=== PATIENT | female | born 1945 | race Hispanic/Latino ===

== ENCOUNTER 2018-02-22 14:45 | Outpatient (CLI) | payer MEDICARE ==
--- NOTE | 2018-02-23 16:46 | MMO ---
BILATERAL SCREENING MAMMOGRAM: 02/22/18 HISTORY: 72-year-old female for screening mammography. COMPARISON: 06/16/16, 06/19/14. FINDINGS: Bilateral MLO and CC views of the breasts shows scattered fibroglandular breast tissue. Benign appear ing calcifications are seen in both breasts. There is no evidence of suspicious mass, suspicious clus ter of microcalcifications or area of architectural distortion. Interpretation of this mammogram was performed with the assistance of computer aided detection. IMPRESSION: BI-RADS 2: Benign Finding(s) Routine annual screening mammography (for women over age 40). POS: [facility]
== END 2018-02-22 14:46 | disposition home or self-care (01) ==
LOC: SCSMAMMO 14:45
PROVIDERS: ATTEND Family Medicine
DX: Z12.31 Encounter for screening mammogram for malignant neoplasm of breast (principal)
CPT/HCPCS: 77067

== ENCOUNTER 2024-02-01 11:02 | Observation (INO) | payer MEDICARE ==
[2024-02-01 12:02] LABS: #Basophils 0.09 10x3/uL (0.0-0.2); %Basophils 1.6 % (0.0-1.0); %Eosinophils 1.1 % (0.0-10.0); %Lymphocytes 13.1 % (21.0-51.0); %Monocytes 8.1 % (0.0-10.0); %Neutrophils 75.7 % (42.0-75.0); Hematocrit 32.3 % (36.0-47.0); Hemoglobin 10.8 g/dL (12.0-16.0); Mean Corpuscular HGB CONC 33.4 g/dL (32.0-36.0); Mean Corpuscular Volume 77.6 fL (78.0-98.0); Mean Platelet Volume 10.6 fL (7.4-10.4); Platelet Count 182 10x3/uL (130-400); RBC Distribution Width 15.5 % (11.5-14.5); Red Blood Cell (RBC) Count 4.16 mill/uL (4.20-5.40)
[2024-02-01 12:25] LABS: ALT (SGPT) 8 U/L (8-55); AST (SGOT) 23 U/L (5-34); Albumin 3.8 g/dL (3.4-4.8); Alkaline Phosphatase 62 U/L (40-110); Anion Gap 16 mmol/L (10-20); BUN (Urea Nitrogen) 17 mg/dL (9.8-20.1); Bilirubin, Total 0.6 mg/dL (0.2-1.2); Calc. Creatinine Clearance 0 mL/min (70-130); Calcium 9.1 mg/dL (7.8-10.44); Carbon Dioxide 17 mmol/L (23-31); Chloride 97 mmol/L (98-107); Estimated GFR 53; Glucose 134 mg/dL (83-110); Magnesium 1.4 mg/dL (1.6-2.6); Protein, Total 6.8 g/dL (5.8-8.1); Sodium 126 mmol/L (136-145)
[2024-02-01 12:53] LABS: Troponin I 0.014 ng/mL (< 0.028)
[2024-02-01 12:58] LABS: Bacteria/HPF 4+ HPF (None Seen); Bilirubin Negative (Negative); Blood, Urine Negative (Negative); CAUTI Indications for Culture Dysuria,urgency,freq; Clarity Turbid (Clear); Glucose, Urine (Dipstick) Normal (Negative); Ketone, Urine Trace mg/dL (Negative); Leukocyte 500 Leu/uL (Negative); Nitrite Negative (Negative); Protein, Urine (Dipstick) Negative (Neg-Trace); RBC/HPF None Seen HPF (0-3); Squamous Epithelial None Seen HPF (0-3); Urobilinogen Normal mg/dL (Less than 2); WBC/HPF Greater than 50 HPF (0-3)
[2024-02-01 13:01] LABS: Urine Culture Reflex Yes Yes
[2024-02-01] MEDS ORDERED: Senokot S 8.6-50 MG TAB PO PRN (14:33)
[2024-02-01] MEDS ORDERED: Glucagon 1 MG/ML KIT IM PRN (14:33)
[2024-02-01] MEDS ORDERED: Dextrose 50% Abboject 50 ML SYRINGE SLOW IVP PRN (14:33)
[2024-02-01] MEDS ORDERED: Acetaminophen 325 MG TAB PO PRN (14:33)
[2024-02-01] MEDS ORDERED: Dextrose 5% in Water 1,000 ML IV PRN (14:33)
[2024-02-01] MEDS ORDERED: Insulin Regular, Human 100 UNIT/ML 10 ML VIAL SC PRN (14:33)
[2024-02-01 15:19] LABS: Lactic Acid 2.2 mmol/L (0.5-2.2)
[2024-02-01] MEDS ORDERED: Sodium Chloride 0.9% 100 ML ONE (16:00)
[2024-02-01] MEDS ORDERED: cefTRIAXone (ROCEPHIN) 2 GM VIAL ONE (16:01)
[2024-02-01 18:32] VITALS: BMI 28.1
[2024-02-01] MEDS: Magnesium 2 GM/50 ML(in water) 2 GM in Premix 1 BAG IVPB SCH ×2 (19:24→20:49)
[2024-02-01] MEDS: Famotidine 20 MG TAB PO SCH (20:49)
[2024-02-02 05:43] LABS: #Basophils 0.09 10x3/uL (0.0-0.2); %Basophils 1.8 % (0.0-1.0); %Eosinophils 2.9 % (0.0-10.0); %Lymphocytes 19.1 % (21.0-51.0); %Monocytes 11.1 % (0.0-10.0); %Neutrophils 64.7 % (42.0-75.0); Hematocrit 33.4 % (36.0-47.0); Hemoglobin 10.9 g/dL (12.0-16.0); Mean Corpuscular HGB CONC 32.6 g/dL (32.0-36.0); Mean Corpuscular Hemoglobin 25.5 pg (27.0-31.0); Mean Corpuscular Volume 78.2 fL (78.0-98.0); Mean Platelet Volume 10.4 fL (7.4-10.4); Platelet Count 190 10x3/uL (130-400); RBC Distribution Width 15.6 % (11.5-14.5); Red Blood Cell (RBC) Count 4.27 mill/uL (4.20-5.40)
[2024-02-02 05:47] LABS: Anion Gap 16 mmol/L (10-20); BUN (Urea Nitrogen) 17 mg/dL (9.8-20.1); Calc. Creatinine Clearance 53 mL/min (70-130); Calcium 8.7 mg/dL (7.8-10.44); Carbon Dioxide 19 mmol/L (23-31); Chloride 103 mmol/L (98-107); Estimated GFR 67; Glucose 88 mg/dL (83-110); Potassium 4.4 mmol/L (3.5-5.1); Sodium 134 mmol/L (136-145)
[2024-02-02] MEDS ORDERED: Non-Formulary Item 1 EACH (Fluticasone Propionate [Fluticasone Propionate] 50 MCG Blst.W. NASAL SCH (09:00)
[2024-02-02] MEDS ORDERED: Non-Formulary Item 1 EACH (Omeprazole [Omeprazole] 20 MG Capsule.Dr) PO SCH (09:00)
[2024-02-02] MEDS: hydrALAZINE 25 MG TAB PO SCH (09:13)
[2024-02-02] MEDS: Levothyroxine Sodium 50 MCG TAB PO SCH (09:13)
[2024-02-02] MEDS: Lisinopril 20 MG TAB PO SCH (09:13)
[2024-02-02] MEDS: Pantoprazole DR 40 MG TAB PO SCH (09:13)
[2024-02-02] MEDS: Fluticasone Propionate Nasal Spray 16 gm Bottle NASAL SCH (09:14)
[2024-02-02] MEDS: cefTRIAXone\\ROCEPHIN 2 GM in Sodium Chloride 0.9% 100 ML IVPB SCH (13:16)
[2024-02-02 15:03] VITALS: BP 137/76; TEMP 97.4
[2024-02-02] MEDS ORDERED: Simvastatin 40 MG TAB PO SCH (21:00)
[2024-02-02] MEDS ORDERED: Famotidine 20 MG TAB PO SCH (21:00)
[2024-02-02] MEDS ORDERED: Atorvastatin Calcium 20 MG TAB PO SCH (21:00)
[2024-02-02] MEDS ORDERED: Memantine 10 MG TAB PO SCH (21:00)
[2024-02-02] MEDS ORDERED: Loratadine 10 MG TAB PO SCH (21:00)
[2024-02-02] MEDS ORDERED: Donepezil HCl 10 MG TAB PO SCH (21:00)
== END 2024-02-02 14:49 | disposition home or self-care (01) ==
LOC: ERS 11:02 → SUATTDRO 11:02 → T4-B 15:36
PROVIDERS: ADMIT Family Medicine; ATTEND Internal Medicine
DX: N39.0 Urinary tract infection, site not specified (principal); R41.82 Altered mental status, unspecified; E11.9 Type 2 diabetes mellitus without complications; I10 Essential (primary) hypertension; E78.5 Hyperlipidemia, unspecified; E03.9 Hypothyroidism, unspecified; K21.9 Gastro-esophageal reflux disease without esophagitis; E83.42 Hypomagnesemia; Z90.710 Acquired absence of both cervix and uterus
CPT/HCPCS: 51701; 70450; 71045; 80048; 80053; 81001; 82962 ×2; 83605; 83735; 84484; 85025 ×2; 87040; 87077; 87086; 87186; 93005; 96374; 96375; 96376; 99285; G0378 ×3; J0696 ×2; J3475; J3490 ×2; 36415; 36416